=== PATIENT | female | born 1985 | race Caucasian/White ===

== ENCOUNTER 2016-11-07 03:15 | Inpatient (IN) | payer BC ==
[2016-11-07] VITALS (48 sets, daily range): BP systolic 73–132; BP diastolic 32–75; PULSE 71–111; RESP 14–22; TEMP 97.5–98.2; O2SAT 97–100
[~2016-11-07] VITALS: Ht 162.6 cm; Wt 82.0 kg
[2016-11-07] MEDS ORDERED: LIDOCAINE HCL 1% 50 ML VIAL ONE (03:44)
[2016-11-07] MEDS ORDERED: OXYTOCIN 30 UNITS-500ML PREMIX 500 ML ONE (03:44)
[2016-11-07] MEDS ORDERED: ePHEDrine/NS 25 MG/5 ML SYR ONE (03:45)
[2016-11-07] MEDS ORDERED: fentaNYL 2MCG-BUPIV 0.125% INJ 100 ML ONE (03:45)
[2016-11-07] MEDS ORDERED: LACTATED RINGER'S 1000 ML INJ 1,000 ML IV SCH ×2 (03:47→12:29)
[2016-11-07] MEDS ORDERED: LACTATED RINGER'S 1000 ML INJ 1,000 ML IV PRN (03:47)
--- NOTE | 2016-11-07 03:47 | PD ---
HPI Chief Complaint Contractions Date Seen: Nov 07, 2016 Time Seen: 03:43 Travel History International Travel<30 Days: No Contact w/Intl Traveler<30Days: No Known Affected Area: No History of Present Illness HPI 31-year-old who is at 40 weeks 1 day comes in complaining of contractions. We don't have an ACOG on this patient but she knows that her group B strep is negative. Patient denies any antepartum complications and she had 1 prior successful vaginal delivery the baby was 6 lbs. 14 oz. Weeks Gestation: 40 Para: 1 : 2 History Past Medical History Medical History: Denies Significant Hx Obstetric History Obstetric History Spontaneous vaginal delivery 6 lbs. 14 oz. Past Surgical History Surgical History: No Previous Surgery Family History Family History: Negative Social History Alcohol Use: No Tobacco Use: No Substance Abuse: No Allergies-Medications (Allergen,Severity, Reaction): Coded Allergies: No Known Allergies (Unverified , 11/07/16) Review of Systems Except as stated in HPI: all other systems reviewed are Neg Physical Exam Narrative GENERAL: Well-nourished, well-developed patient. SKIN: Warm and dry. HEAD: Normocephalic and atraumatic. EYES: No scleral icterus. No injection or drainage. ENT: No nasal drainage noted. Mucous membranes pink. Airway patent. NECK: Supple, trachea midline. No JVD. CARDIOVASCULAR: Regular rate and rhythm without murmurs, gallops, or rubs. RESPIRATORY: Breath sounds equal bilaterally. No accessory muscle use. ABDOMEN/GI: Abdomen soft, non-tender, bowel sounds present, no rebound, no guarding Gravid to [38-] weeks size Fundal Height: [-] GENITOURINARY: External Genitalia: intact and normal in appearance BUS glands: [Normal-] Cervix: [-Mid position] Dilatation: [-7] Effacement: [-80] Station: [-1-] Presentation: [-Vertex] Membranes: [intact with bulging bag of water] Uterine Contractions: [Every 5 minutes -] FHT's: Category: [-1] Baseline: [140-] Reactive: [-Moderate] Variability: [Moderate-] Decels: [Absent-] EXTREMITIES: No cyanosis or edema. BACK: Nontender without obvious deformity. No CVA tenderness. NEUROLOGICAL: Awake and alert. Motor and sensory grossly within normal limits. Five out of 5 muscle strength in all muscle groups. Normal speech. Data Data Vital Signs Reviewed: Yes Orders Orders Ob (2e) Additional Admit Info (11/07/16 03:39) Group B Strep: Negative MDM Medical Record Reviewed: Yes Plan 31-year-old at term gestation with a negative group B strep per her verbal recollection. Patient is in labor and will be admitted Dr. Carrillo has been notified Diagnosis Diagnosis: Primary Impression: 40 weeks gestation of Additional Impressions: Intact amniotic membranes during in third trimester Irregular uterine contractions Yasmin Keenan MD Nov 07, 2016 03:47
[2016-11-07] MEDS ORDERED: PREN29TA PO (03:51)
[2016-11-07] MEDS ORDERED: SODIUM CHLORID 0.9% 500 ML INJ 500 ML IV PRN (04:00)
[2016-11-07] MEDS ORDERED: MINERAL OIL 10 ML VIAL TOPICAL PRN (04:00)
[2016-11-07] MEDS ORDERED: OXYTOCIN 30 UNITS-500ML PREMIX 500 ML IV ONE ×2 (04:00→07:30)
[2016-11-07] MEDS ORDERED: ONDANSETRON HCL 4 MG/2 ML VIAL IV PRN (04:00)
[2016-11-07] MEDS ORDERED: CITRIC ACID-SODIUM CITRATE LIQ 30 ML UDC PO SCH (04:00)
[2016-11-07] MEDS ORDERED: LIDOCAINE HCL 1% 50 ML VIAL I-DERMAL PRN (04:00)
[2016-11-07] MEDS ORDERED: LIDOCAINE HCL 1% 50 ML VIAL INFIL PRN (04:00)
[2016-11-07 04:03] LABS: AUTOMATED NEUTROPHIL # 8.5 TH/MM3 (1.8-7.7); BASOPHIL # 0.1 TH/MM3 (0-0.2); BASOPHIL % 0.5 % (0.0-2.0); EOSINOPHIL % 0.3 % (0.0-4.0); HEMATOCRIT 37.4 % (35.0-46.0); HEMO FLAGS DIFF FINAL; LYMPH % 17.6 % (9.0-44.0); MEAN CELL VOLUME 85.3 FL (80.0-100.0); MEAN CORPUSCULAR HEMOGLOBIN 29.1 PG (27.0-34.0); MEAN CORPUSCULAR HGB CONC 34.1 % (32.0-36.0); MONO % 4.8 % (0.0-8.0); NEUT % 76.8 % (16.0-70.0); PLATELET COUNT 255 TH/MM3 (150-450); RED BLOOD COUNT 4.39 MIL/MM3 (4.00-5.30); RED CELL DISTRIBUTION WIDTH 13.8 % (11.6-17.2); WHITE BLOOD COUNT 11.1 TH/MM3 (4.0-11.0)
[2016-11-07] MEDS ORDERED: SODIUM CHLOR 0.9% 1000 ML INJ 1,000 ML IV PRN (04:07)
[2016-11-07 04:16] LABS: BACTERIA, URINE RARE /hpf; BLOOD, URINE NEG (NEG); COMMENT (UR) CULTURE INDICATED; CULTURE IF INDICATED CULTURE INDICATED; GLUCOSE,URINE NEG (NEG); KETONE, URINE TRACE mg/dL (NEG); MUCUS URINE FEW /lpf (OCC); NITRITE,URINE NEG (NEG); PH, URINE 5.5 (5.0-8.5); SQUAMOUS EPITHELIAL CELL URINE 34 /hpf (0-5); URIC ACID CRYSTALS, URINE MOD /hpf; URINE COLOR YELLOW (YELLW/STRAW)
[2016-11-07] MEDS ORDERED: TERBUTALINE INJ 1 MG/ML AMP ONE (04:37)
[2016-11-07] MEDS ORDERED: fentaNYL 2MCG-BUPIV 0.125% 100 ML EPIDURAL SCH (05:30)
[2016-11-07] MEDS ORDERED: DO NOT ADMINISTER ANTICOAGULANTS PRN (05:30)
[2016-11-07] MEDS ORDERED: ePHEDrine/NS 25 MG/5 ML SYR IV PRN (05:30)
[2016-11-07] MEDS ORDERED: NO SYSTEM NARCOTICS PRN (05:30)
--- NOTE | 2016-11-07 05:55 | HHI.PR ---
HEALTH EDUCATOR Note Note Late entry: Called to pt room at approx 430a for prolonged deceleration with low BP after epidural. Ephedrine dosing administered by RN, pt flipped side to side, O2 by facemask, single dose IM terbutaline administered. SVE 9/70/-1, pt AROM'd clear. FHTs returned to 130s range with good variability after knee chest and previously mentioned interventions. Pt had approximately 20-30 minutes of reassuring Cat I tracing, then started to have late decelerations with spontaneous contractions. FSE placed and IUPC, additional dose of of terbutaline given, by this time total of 50mg ephedrine had been administered over the hour by RN. GRAD INTERN notified, instructed to give additional 5mg dose, if no improvement in pt BP GRAD INTERN states she will come to bedside for addt'l intervention. On SVE at 530a cervix slightly thicker, now 8/60/-1. D/w pt and possibility of if FHTs do not improve. Pt on L lateral with peanut ball and O2 by facemask, at this time reactive tracing, will continue to monitor closely. OR staff aware, ready for CD if indicated. Delia Carrillo MD Nov 07, 2016 05:55
[2016-11-07 07:06] LABS: BLOOD GAS BASE EXCESS -2.9 mmol/L (-2-2); BLOOD GAS O2 HGB SATURATION 28 % (90-100); CORD BLOOD GAS HCO3 24 mmol/L (21-29); CORD BLOOD GAS PCO2 58 mmHG (34-78); CORD BLOOD GAS PH 7.23 (7.14-7.42); CORD BLOOD GAS PO2 17 mmHG (3.0-40.0); DRAW SITE CORD BLOOD; STAT YES
[2016-11-07] MEDS ORDERED: EPIDURAL-NALOXONE HCL 0.4 MG/ML AMP IV PUSH PRN (07:10)
[2016-11-07] MEDS ORDERED: EPIDURAL-DIPHENHYDRAMINE HCL 50 MG CAP PO PRN (07:10)
[2016-11-07] MEDS ORDERED: EPIDURAL-DO NOT ADMINISTER ANTICOAGULANTS PRN (07:10)
[2016-11-07] MEDS ORDERED: EPIDURAL-NO SYSTEMIC NARCOTICS PRN (07:10)
[2016-11-07] MEDS ORDERED: EPIDURAL-DIPHENHYDRAMINE HCL 50 MG/ML VIAL IV PUSH PRN (07:10)
[2016-11-07] MEDS ORDERED: KETOROLAC TROMETHAMINE 60 MG/2 ML (IM) VIAL IM PRN (07:30)
[2016-11-07] MEDS ORDERED: ACETAMINOPHEN 325 MG TAB PO PRN (07:30)
[2016-11-07] MEDS ORDERED: oxyCODONE/ACETAMINOPHEN 5 MG/325 MG TAB PO PRN ×2 (07:30)
[2016-11-07] MEDS ORDERED: IBUPROFEN 600 MG TAB PO PRN (07:30)
[2016-11-07] MEDS ORDERED: ZOLPIDEM TARTRATE 5 MG TAB PO PRN (07:30)
[2016-11-07] MEDS ORDERED: ACETAMINOPHEN 1000 MG/100 ML 100 ML IV ONE ×2 (07:30→07:59)
[2016-11-07] MEDS ORDERED: ONDANSETRON HCL 4 MG/2 ML VIAL IV PUSH PRN (07:30)
[2016-11-07] MEDS ORDERED: SIMETHICONE 80 MG CHEWABLE TAB PO PRN (07:30)
[2016-11-07] MEDS ORDERED: SODIUM CHLORIDE 0.9% FLUSH 10 ML FLUSH IV FLUSH PRN (07:30)
--- NOTE | 2016-11-07 07:42 | PD.OB.DELI ---
Procedure Note Section Procedure Pre Op Diagnosis: (1) Antepartum bradycardia affecting care of mother (2) S/P primary low transverse Post Op Diagnosis: Performed by Delia Carrillo Procedure: Primary Low Transverse Sec Indication for delivery: Nonreassuring heart tracing (terminal bradycardia) Previous condition: None Informed consent obtained: For anesthesia, For procedure Confirmed correct: Patient, Procedure, Site, Other (no time out, STAT; count previously) Anesthesia: Epidural Medication prior to procedure: As documented in eMAR Monitoring during procedure: Blood pressure monitoring, compliance monitor Urinary catheter: Inserted using sterile technique (in room after epidural was placed), To dependent drainage, ml urine output (200 mL) Sterile preparation: Other (splash with betadyne due to STAT nature) Position: Supine with wedge to right side Operative Features Skin Incision: Pfannenstiel Uterine Incision: Low transverse w/knife / blunt ext Membranes Ruptured: Previously (clear), Amount of liquid (moderate) Delivery date: Nov 07, 2016 Delivery time: 06:49 Delivery of infant: Uneventful : Male One Minute : 8 Five Minute : 9 Weight: 7#12oz Status of infant: Viable, Cord blood, Nursery present Placenta delivered: Intact Medications: Antibiotics (Ancef 2g administered intraop) Estimated blood loss: 500 Ml Procedure tolerated: Well Maternal Complications: Anesthesia-related (persistent low blood pressure after epidural requiring repeated doses of ephedrine) Maternal Condition: Stable Condition: Stable Procedure in detail see dictated op note for full details Delia Carrillo MD Nov 07, 2016 07:42
--- NOTE | 2016-11-07 07:42 | HHI.DCPOC ---
Discharge Care Plan Diagnosis: (1) S/P primary low transverse Your Health Problems Are: delivery Report Symptoms to Your Doctor -Temperature above 100.5 degrees -Redness, of incision or excessive or foul smelling drainage -Unusual pain or calf pain -Increased vaginal bleeding -Painful or difficulty urinating -Feelings of extreme sadness or anxiety after 2 weeks Goals to Promote Your Health * To prevent worsening of your condition and complications * To maintain your health at the optimal level Directions to Meet Your Goals Take your medications as prescribed Follow your dietary instruction Follow activity as directed Ensure plenty of rest for recovery Drink fluids for hydration Keep your appointments as scheduled Take your immunizations and boosters as scheduled If your symptoms worsen call your PCP, if no PCP go to Urgent Care Center or Emergency Room Smoking is Dangerous to Your Health. Avoid second hand smoke Call the 24-hour crisis hotline for domestic abuse at Delia Carrillo MD Nov 07, 2016 07:42
[2016-11-07] MEDS ORDERED: SODIUM CHLORIDE 0.9% FLUSH 10 ML FLUSH IV FLUSH SCH (09:00)
--- NOTE | 2016-11-07 10:16 | MP ---
cc: LOUISA VICTORIA M.D. 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 She was found to be 7-8 cm dilated with intact membranes and was admitted for labor. The patient received epidural anesthesia around 4 in the morning. After that time she began to have non-reassuring heart tracing with prolonged deceleration requiring terbutaline, supportive measures including oxygen and knee chest positioning. The heart tones did recover initially but after approximately an additional 30 minutes of a Category One tracing, the patient had intermittent late decelerations with another prolonged late deceleration at approximately 06:30 in the morning at which time heart rate did not recover and stat was called. PROCEDURE PERFORMED STAT Primary low transverse delivery. PREOPERATIVE DIAGNOSES 1. Intrauterine at 40 weeks. 2. Terminal bradycardia of the fetus. POSTOPERATIVE DIAGNOSES 1. Intrauterine at 40 weeks. 2. Terminal bradycardia of the fetus. 3. Postop day #0. SURGEON Louisa Victoria MD ANESTHESIA Epidural. ESTIMATED BLOOD LOSS 500 mL. IV FLUID REPLACEMENT 1 liter. URINE OUTPUT 200 mL of clear urine draining in the Portillo bag at the end of the procedure. COMPLICATIONS Terminal bradycardia leading to stat delivery. COUNTS Sponge, lap, instrument and needle counts were correct at the conclusion of the procedure x 2. SPECIMEN Cord segment and cord blood gas. The placenta was saved to be donated. OPERATIVE FINDINGS A vigorous viable male weighing 7 pounds, 11 ounces. Clear amniotic fluid. Apgars of 8 and 9. Normal placenta and umbilical cord. Normal uterus, bilateral fallopian tubes and ovaries. The fetus was asynclitic in LOP presentation. PROCEDURE IN DETAIL After reviewing informed consent, the patient was taken in a stat manner to the operating suite. Due to the stat nature, a time-out was not performed. The patient was properly positioned. Portillo catheter was already in place as per the labor process. Betadine was splashed on the abdomen. Draping was placed. The abdomen was tested and a scalpel was used to make a Pfannenstiel's type incision which was carried down to the underlying layer of fascia which was incised in the midline and incision was extended bluntly. The rectus muscles were then in the midline. The peritoneum was identified and entered bluntly. A bladder blade was placed. The scalpel was used to make a low transverse uterine incision which was extended bluntly and the 's head was grasped, flexed, elevated out of the incision. The rest of the body readily delivered with gentle maneuvering. Delayed cord clamping at 45 seconds was performed. The was immediately crying on delivery. The cord was then clamped and cut. Cord segment was taken, blood gas was taken as well. The placenta was delivered manually. The uterus was exteriorized, cleared of all clots and debris with sterile moist lap sponges. The hysterotomy was repaired in a double layer using #1 chromic, first a running locked layer, then in imbricating fashion. The posterior cul-de-sac was then irrigated copiously with warm sterile saline. The uterus was returned to the abdomen. Additional irrigation with suction was performed. Excellent hemostasis was noted. The peritoneum was closed in a running layer with 2-0 chromic. The fascia was closed in a running layer with #1 Vicryl. The subcutaneous tissue was irrigated copiously with warm sterile saline and a series of interrupted sutures using 2-0 chromic was used to close the subcutaneous space. 4-0 Monocryl was used to close the skin in subcuticular fashion. Primapore dressing was placed. The procedure was concluded at this point. The patient tolerated the procedure well with the above-noted complications. PROPHYLAXIS SCDs were on and functioning throughout the entire case. Ancef 2 grams IV was given intraoperatively. DISPOSITION The patient and are both doing well. Infant is nursery status. Discharge for mother and is expected in two to three postoperative days. MD GLEN Guzman/BLAKE /7:43 AM /10:00 AM PARVEZ
[2016-11-07] MEDS ORDERED: ONDANSETRON HCL 4 MG/2 ML VIAL IV PUSH ONE (12:00)
[2016-11-07] MEDS ORDERED: PROPOFOL 200 MG/20 ML AMP IV ONE (12:00)
[2016-11-07] MEDS ORDERED: ceFAZolin INJ 1,000 MG VIAL IV ONE (12:00)
[2016-11-07] MEDS ORDERED: MORPHINE SULFATE PF 5 MG/10 ML VIAL ONE (12:00)
[2016-11-07] MEDS ORDERED: STERILE WATER FOR INJECTION 20 ML VIAL ONE (12:00)
[2016-11-07] MEDS ORDERED: OXYTOCIN 10 UNIT/ML AMP IV ONE (12:00)
[2016-11-07] MEDS ORDERED: OXYTOCIN 30 UNITS-500ML PREMIX 500 ML IV PRN (17:30)
[2016-11-07] MEDS ORDERED: DOCUSATE SODIUM 50 MG/SENNA 8.6 MG TAB PO SCH (21:00)
[2016-11-08] VITALS: BP 104/59; PULSE 81; RESP 16; TEMP 98.4
[2016-11-08 04:00] VITALS: BP 101/61; PULSE 69; RESP 16; TEMP 98.5
[2016-11-08 05:59] LABS: AUTOMATED NEUTROPHIL # 8.2 TH/MM3 (1.8-7.7); BASOPHIL % 0.1 % (0.0-2.0); EOSINOPHIL % 0.2 % (0.0-4.0); HEMATOCRIT 30.8 % (35.0-46.0); HEMO FLAGS DIFF FINAL; LYMPH % 16.8 % (9.0-44.0); LYMPHOCYTE # 1.8 TH/MM3 (1.0-4.8); MEAN CELL VOLUME 86.1 FL (80.0-100.0); MEAN CORPUSCULAR HEMOGLOBIN 29.5 PG (27.0-34.0); MEAN CORPUSCULAR HGB CONC 34.3 % (32.0-36.0); MONO % 6.8 % (0.0-8.0); NEUT % 76.1 % (16.0-70.0); PLATELET COUNT 220 TH/MM3 (150-450); RED BLOOD COUNT 3.58 MIL/MM3 (4.00-5.30); RED CELL DISTRIBUTION WIDTH 14.7 % (11.6-17.2); WHITE BLOOD COUNT 10.7 TH/MM3 (4.0-11.0)
[2016-11-08 08:50] VITALS: BP 92/55; PULSE 62; RESP 16; TEMP 98.3
--- NOTE | 2016-11-08 11:48 | HHI.OB ---
Subjective Post Operative Day: 1 Remarks POD#1, doing excellent ! Objective Result Diagram: 11/08/16 2598 Objective Remarks GENERAL: Well-nourished, well-developed patient. CARDIOVASCULAR: Regular rate and rhythm without murmurs, gallops, or rubs. RESPIRATORY: Breath sounds equal bilaterally. No accessory muscle use. ABDOMEN/GI: Abdomen soft, non-tender, bowel sounds present. Incision: Clean, dry and intact. Fundus: Firm, non-tender at umbilicus. GENITOURINARY: Light to moderate bleeding. EXTREMITIES: No cyanosis or edema, non-tender, without signs of DVT. Medications and IVs Current Medications Medications (Trade) Dose Ordered Sig/Sravan Route Start Time Stop Time Status Last Admin Oxytocin 500 ml @ 100 mls/hr UNSCH X1 PRN IV 11/07/16 17:30 11/08/16 17:29 (NS Flush) 2 ml BID IV FLUSH 11/07/16 09:00 (NS Flush) 2 ml UNSCH PRN IV FLUSH 11/07/16 07:30 (Mylicon Chew) 80 mg QID PRN PO 11/07/16 07:30 (Tylenol) 650 mg Q6H PRN PO 11/07/16 07:30 (Motrin) 600 mg Q6H PRN PO 11/07/16 07:30 (Percocet 5-325 Mg) 1 tab Q4H PRN PO 11/07/16 07:30 (Percocet 5-325 Mg) 2 tab Q4H PRN PO 11/07/16 07:30 (Sarah-Colace) 2 tab Q12H PO 11/07/16 21:00 (Ambien) 5 mg HS PRN PO 11/07/16 07:30 (M-M-R Ii Inj) 0.5 ml ONCE ONCE SQ 11/08/16 16:00 11/08/16 16:01 (Boostrix Inj) 0.5 ml ONCE ONCE IM 11/08/16 16:00 11/08/16 16:01 (Zofran Inj) 4 mg Q6H PRN IV PUSH 11/07/16 07:30 Assessment/Plan Assessment and Plan POD#1, doing well, circ. done, plan discharge for tomorrow Discharge Planning Routine Attending Attestation seen by Shiva Eid MD Nov 08, 2016 11:48
[2016-11-08] MEDS ORDERED: DIPHTH/TETANUS/ACEL PERTUSSIS (BOOSTER) 0.5 ML VIAL/PFS IM ONE (16:00)
[2016-11-08] MEDS ORDERED: MEASLES, MUMPS, RUBELLA VACCINE 0.5 ML VIAL SQ ONE (16:00)
[2016-11-08 20:00] VITALS: BP 110/63; PULSE 72; RESP 16; TEMP 98.6
--- NOTE | 2016-11-09 08:04 | HHI.OB ---
Subjective Post Operative Day: 2 Remarks pt doing well, +BM , ready to go home Objective Vitals/I&O vss afeb Result Diagram: 11/08/16 0507 Objective Remarks GENERAL: Well-nourished, well-developed patient. CARDIOVASCULAR: Regular rate and rhythm without murmurs, gallops, or rubs. RESPIRATORY: Breath sounds equal bilaterally. No accessory muscle use. ABDOMEN/GI: Abdomen soft, non-tender, bowel sounds present. Incision: Clean, dry and intact. Fundus: Firm, non-tender at umbilicus. GENITOURINARY: Light to moderate bleeding. EXTREMITIES: No cyanosis or edema, non-tender, without signs of DVT. Medications and IVs Current Medications Medications (Trade) Dose Ordered Sig/Sravan Route Start Time Stop Time Status Last Admin (NS Flush) 2 ml BID IV FLUSH 11/07/16 09:00 (NS Flush) 2 ml UNSCH PRN IV FLUSH 11/07/16 07:30 (Mylicon Chew) 80 mg QID PRN PO 11/07/16 07:30 (Tylenol) 650 mg Q6H PRN PO 11/07/16 07:30 (Motrin) 600 mg Q6H PRN PO 11/07/16 07:30 11/08/16 13:42 (Percocet 5-325 Mg) 1 tab Q4H PRN PO 11/07/16 07:30 (Percocet 5-325 Mg) 2 tab Q4H PRN PO 11/07/16 07:30 (Sarah-Colace) 2 tab Q12H PO 11/07/16 21:00 11/08/16 13:42 (Ambien) 5 mg HS PRN PO 11/07/16 07:30 (Zofran Inj) 4 mg Q6H PRN IV PUSH 11/07/16 07:30 Assessment/Plan Assessment and Plan POD#2, doing well, circ. done, plan discharge for today Discharge Planning Routine Attending Attestation pt seen by Alyssa Gilliland MD Nov 09, 2016 08:04
[2016-11-09] MEDS ORDERED: OXYC1TAB63 PO (08:06)
[2016-11-09] MEDS ORDERED: SENN1TAB PO (08:06)
[2016-11-09] MEDS ORDERED: IBUP-232 PO (08:06)
[2016-11-09 08:13] VITALS: BP 105/66; PULSE 84; RESP 16; TEMP 98.4
== END 2016-11-09 10:45 | disposition home or self-care (01) | DRG 766 ==
LOC: HOBED 03:15 → H2EA 03:39 → H1EA 08:44
PROVIDERS: ADMIT Obstetrics & Gynecology; ATTEND Obstetrics & Gynecology
PROC: 10D00Z1 Extraction of Products of Conception, Low, Open Approach (ICD-10-PCS; principal; 2016-11-07)
PROC: 3E0S3CZ (ICD-10-PCS; 2016-11-07)
PROC: 00HU33Z Insertion of Infusion Device into Spinal Canal, Percutaneous Approach (ICD-10-PCS; 2016-11-07)
DX: O76 Abnormality in fetal heart rate and rhythm complicating labor and delivery (principal); T88.59XA Other complications of anesthesia, initial encounter; I95.89 Other hypotension; T41.3X5A Adverse effect of local anesthetics, initial encounter; Y92.230 Patient room in hospital as the place of occurrence of the external cause; Z37.0 Single live birth; Z3A.40 40 weeks gestation of pregnancy
CPT/HCPCS: 59025; 81001; 82805; 85025; 86900; 86901; 87086; 99285; J0131; J0690; J2274; J2405; J2590; J3105; J7120